=== PATIENT | female | born 1995 | race Two or more races ===

== ENCOUNTER 2024-10-29 08:37 | Emergency (ER) | payer MEDICAID, SELFPAY ==
[2024-10-29 08:41] VITALS: BP 125/71; PULSE 76; RESP 18; TEMP 36.8; O2SAT 100; BMI 40.4
[2024-10-29 08:45] VITALS: PULSE 70; O2SAT 98; BMI 37.8
--- NOTE | 2024-10-29 08:45 | PD.EDSYNC ---
ED Syncope RME/HPI General Chief Complaint: Syncope / Near Syncope Stated Complaint: SYNCOPE Time Seen by Provider: 10/29/24 08:44 Arrival date/time: 10/29/24 08:37 RME / HPI RME / HPI narrative: 28 year old female who is currently 5 weeks gestational age with history of diabetes, hyperlipidemia, preeclampsia presents to the ED BIBA for evaluation of syncopal episode today. 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 She states she has been having morning sickness associated with the . States she went to sit and put her head down and next thing she recalls is waking on the floor. Per medics, [place] staff witnessed patient lose consciousness for ~ 20 seconds. Prehospital BS 144, blood pressure 140/86, NSR at 70 bpm. No falls or injuries reported. While in the ED patient complains of nausea otherwise no other symptoms reported. Denies fever, chills, sweating. Denies chest pain, cough, shortness of breath. Denies diarrhea, constipation. Denies dysuria, urinary frequency and urgency. Related Data Previous Rx's ?Medication ?Instructions ?Recorded nitrofurantoin 100 mg PO BID #14 caps 10/29/24 monohydrate/macrocrystals 100 mg capsule (Macrobid) Allergies Allergy/AdvReac Type Severity Reaction Status Date / Time amoxicillin Allergy Swelling Verified 10/29/24 09:00 of Lip/Tongue/Throat azithromycin Allergy Swelling Verified 10/29/24 09:00 of Lip/Tongue/Throat Latex, Natural Rubber Allergy Hives Verified 10/29/24 09:00 Penicillins Allergy Swelling Verified 10/29/24 09:00 of Lip/Tongue/Throat Review of Systems Review of Systems Narrative Review of Systems: GEN: No fever, no chills, no weight loss EYES: No discharge, no visual changes, no pain HEENT: No ear pain, no congestion, no sore throat PULM: No shortness of breath, no cough, no congestion CV: +syncope. No chest pain, no palpitations GI: + nausea, no vomiting, no diarrhea, no pain, no constipation : No frequency, no urgency and no dysuria MUSC/SKEL No joint pain, no back pain SKIN: No rash NEURO: No weakness, no headache Past Medical History Past Medical History NEUROLOGIC: Positive Peripheral Neuropathy (PAIN STIMULATOR) CARDIAC: Positive Heart Murmur and Hypertension; Negative Congestive Heart Failure RESPIRATORY: Negative Chronic Obstructive Pulmonary Disease (COPD) GENITOURINARY: Negative Renal Disease REPRODUCTIVE: Positive Previous Pregnancies ENDOCRINE: Positive Diabetes Mellitus Type 2; Negative Diabetes Mellitus Type 1 Social History SMOKING STATUS: Never smoker ED Exam Narrative Physical exam: GENERAL APPEARANCE: alert and oriented x 4, well-developed, well-nourished, no acute distress HEENT: Normocephalic, atraumatic; pupils equal, round, reactive to light; EOMI; mucous membranes pink, moist; oropharynx clear NECK: Supple LUNGS: CTABL; no wheezes, no rales, no rhonchi HEART: Regular rate, regular rhythm; normal S1, S2; no murmurs ABDOMEN: non distended; normal BS; soft, very mild left lower quadrant tenderness, no rebound, no guarding; no masses, no organomegaly, no hernia BACK: no CVA tenderness EXTREMITIES: atraumatic; no edema NEUROLOGIC: awake; alert and oriented x4; cranial nerves II-XII grossly intact; no focal sensory or motor deficits PSYCHIATRIC: appropriate mood and affect SKIN: warm, dry, normal color; no rashes Course Quality Measures none Orders Category Date Time Status US OB <= 14 weeks fetus Stat Exams 10/29/24 08:50 Completed US OB transvaginal Stat Exams 10/29/24 08:50 Completed Beta HCG,Quantitative Stat Lab 10/29/24 09:45 Completed CBC Stat Lab 10/29/24 09:45 Completed CMP [Comprehensive Metabolic Panel] Stat Lab 10/29/24 09:45 Completed Magnesium Stat Lab 10/29/24 09:45 Completed UA [Urinalysis] Stat Lab 10/29/24 09:27 Completed Urine Culture Stat Lab 10/29/24 09:27 Received Vital Signs Vital signs: Vital Signs Temperature 98.3 F 10/29/24 08:41 Pulse Rate 76 10/29/24 08:41 Respiratory Rate 18 10/29/24 08:41 Blood Pressure 125/71 10/29/24 08:41 Pulse Oximetry (%) 100 10/29/24 08:41 Oxygen Delivery Method Nasal Cannula 10/29/24 08:41 Oxygen Flow Rate 2 10/29/24 08:41 Pulse ox is 100% on room air which is adequate. Syncope MDM Narrative MDM Narrative:: Vanessa Garcia am scribing for and in the presence of Dr. Gil. Patient data External records reviewed:: [facility] previous records (Per EMR review, no previous visits for review ) and EMS form Clinical information provided by:: patient and EMS Social determinants that could affect healthcare access:: none Patient has the following chronic illnesses:: currently 5 weeks gestational age with history of diabetes, hyperlipidemia, preeclampsia How is presenting disease/condition affected by chronic disease/condition?: exacerbated by Evaluation data The following diagnostics were reviewed and interpreted by me:: lab results and radiology exam(s) Lab and/or radiology exams considered but not ordered:: None Interpretation Summary: Ordering Physician: Ruth Ann Gil MD Date of Service: 10/29/24 Procedure(s): US OB <= 14 weeks fetus Accession Number(s): [id number] cc: Silas Byrd MD; NO PRIMARY/FAMILY,PHYSICIAN; Ruth Ann Gil MD~ Examination: Complete OB ultrasound, less than 14 weeks, transabdominal Date and time of exam: October 29, 2024 1006 hours INDICATIONS: Onset sharp left-sided pelvic pain today Technique: Obstetrical ultrasound images less than 14 weeks performed via transabdominal imaging Findings: Uterus 7.6 x 4.3 x 6.1 cm Endometrial sign 0.6 cm No uterine mass or intrauterine gestation Trace free fluid in the posterior cul-de-sac Right ovary 3.1 x 1.9 x 4.1 cm arterial flow, 23 x 14 x 20 mm cyst Left ovary 3.3 x 2.2 x 2.8 cm arterial flow IMPRESSION: No uterine mass or intrauterine gestation Right ovarian cyst 23 x 14 x 22 mm Suggest short-term follow-up transvaginal pelvic sonography as clinically warranted Dictated By: Silas Byrd MD Signed By: <Electronically signed by Silas Byrd MD in OV> 10/29/24 1115 Ordering Physician: Ruth Ann Gil MD Date of Service: 10/29/24 Procedure(s): US OB transvaginal Accession Number(s): [id number] cc: Silas Byrd MD; NO PRIMARY/FAMILY,PHYSICIAN; Ruth Ann Gil MD~ Examination: OB Transvaginal ultrasound of the pelvis, complete Technique: Transvaginal sonographic images pelvis performed using corea scale imaging Exam date and time: October 29, 2024 1027 hours INDICATIONS: Onset sharp left-sided pelvic pain beginning yesterday FINDINGS: Uterus 7.8 x 5.3 x 5.4 cm Endometrial stripe 14 mm No intrauterine gestation or uterine mass Ovaries obscured by bowel gas IMPRESSION: No uterine mass or intrauterine gestation. Dictated By: Silas Byrd MD Signed By: <Electronically signed by Silas Byrd MD in OV> 10/29/24 1114 Medications / Prescriptions Medications or Prescriptions considered but not ordered:: None Medication administrations:: None Consultations Consultation(s) initiated? (list below): No Diagnosis Syncope Differential Diagnosis: syncope due to orthostatic hypotension, vasovagal syncope and dehydration Most likely diagnosis given after review of the tests above:: at early stage Abdominal pain during Admission Indicated Admission indicated?: not indicated Explain why admission is indicated or not indicated:: Does not meet admission criteria. Admission Request Was there a request for admission?: No Disposition Plan Disposition Plan: Discharge Discharge Attestation Discharge Attestation: The patient and all family members were given an opportunity to ask questions and understood the discharge instructions. Discharge instructions specifically effects, indications for sooner follow up or return to the emergency department, and the expected course of current diagnosis. Patient condition: Stable Discharge Plan Plan Patient Disposition: HOME (Self Care) Prescriptions/Referrals Prescriptions/Med Rec: New nitrofurantoin monohyd/m-cryst [Macrobid] 100 mg capsule 100 mg PO BID Qty: 14 0RF Rx Instructions: must administer with a meal/food Referrals: No Primary/Family,Physician [Primary Care Provider] - In 1 week Problem List Clinical Impression: at early stage, Abdominal pain during , UTI (urinary tract infection) during , Cyst of right ovary Patient/Caregiver Discharge Instructions Education Materials: ED Abdominal Pain Unkn Cause Fem, ED CYSTITIS Female Adult Additional Instructions: Follow up with your OB doctor in 2 days to recheck hormone levels and further management. Continue vitamins with folic acid. Print Language: Faroese Stand Alone Forms: Gloria Award Info., Patient Portal Info Letter
--- NOTE | 2024-10-29 08:50 | XR_ITS ---
Examination: OB Transvaginal ultrasound of the pelvis, complete Technique: Transvaginal sonographic images pelvis performed using corea scale imaging Exam date and time: October 29, 2024 1027 hours INDICATIONS: Onset sharp left-sided pelvic pain beginning yesterday FINDINGS: Uterus 7.8 x 5.3 x 5.4 cm Endometrial stripe 14 mm No intrauterine gestation or uterine mass Ovaries obscured by bowel gas IMPRESSION: No uterine mass or intrauterine gestation.
--- NOTE | 2024-10-29 08:50 | XR_ITS ---
Examination: Complete OB ultrasound, less than 14 weeks, transabdominal Date and time of exam: October 29, 2024 1006 hours INDICATIONS: Onset sharp left-sided pelvic pain today Technique: Obstetrical ultrasound images less than 14 weeks performed via transabdominal imaging Findings: Uterus 7.6 x 4.3 x 6.1 cm Endometrial sign 0.6 cm No uterine mass or intrauterine gestation Trace free fluid in the posterior cul-de-sac Right ovary 3.1 x 1.9 x 4.1 cm arterial flow, 23 x 14 x 20 mm cyst Left ovary 3.3 x 2.2 x 2.8 cm arterial flow IMPRESSION: No uterine mass or intrauterine gestation Right ovarian cyst 23 x 14 x 22 mm Suggest short-term follow-up transvaginal pelvic sonography as clinically warranted
[2024-10-29 09:33] LABS: Collection Type, Urine Clean Catch
[2024-10-29 09:57] LABS: Basophils % (Auto) 0 % (0-2.5); Eosinophils # (Auto) 0.1 Thou/mm3 (0.0-0.5); Eosinophils % (Auto) 1 % (0-10); Hematocrit 34.5 % (36.0-46.0); Hemoglobin 11.7 g/dL (12.0-16.0); Immature Granulocytes % (Auto) 1 % (0-0); Immature Granulocytes Auto 0.03 Thou/mm3 (0.00-0.00); Lymphocytes # (Auto) 0.7 Thou/mm3 (1.0-4.8); Lymphocytes % (Auto) 11 % (10-50); Mean Corpuscular HGB Conc 33.9 g/dl (31.0-37.0); Mean Corpuscular Hemoglobin 29.5 pg (25.0-35.0); Mean Corpuscular Volume 87 fL (80-100); Monocytes # (Auto) 0.6 Thou/mm3 (0.0-0.8); Monocytes % (Auto) 9 % (0-12); Neutrophils # (Auto) 5.1 Thou/mm3 (1.8-7.7); Neutrophils % (Auto) 78 % (37-80); Nucleated Red Blood Cell % 0 /100 WBC (0); Platelet Count 254 Thou/mm3 (140-440); RDW Standard Deviation 45.2 fL (36.4-46.3); Red Blood Count 3.97 Miln/mm3 (4.00-5.20); White Blood Count 6.6 Thou/mm3 (3.6-11.0)
[2024-10-29 10:00] VITALS: BP 106/69; PULSE 68; RESP 15; TEMP 36.5; O2SAT 100
[2024-10-29 10:02] LABS: Bacteria,Urine Rare; Bilirubin,Urine Negative (Negative); Blood,Urine 1+ (Negative); Clarity,Urine Turbid (Clear/Hazy); Color,Urine Yellow (Lt Yel-Yel); Glucose, Urine Negative (Negative); Ketones,Urine 1+ (Negative); Leukocyte Esterase,Urine Positive (Negative); Nitrite,Urine Negative (Negative); Protein,Urine 1+ (Neg - Trace); RBC,Urine 7 /hpf (0-3); Specific Gravity,Urine 1.021 (1.001-1.035); Squamous Epithelial Cell,Urine 2 /hpf (0-5); WBC,Urine 6 /hpf (0-5)
[2024-10-29 10:12] LABS: Alanine Aminotransferase 39 U/L (10-49); Albumin, Serum 4.7 gm/dL (3.5-5.0); Albumin/Globulin Ratio 1.6 (1.2-2.2); Alkaline Phosphatase 82 U/L (46-116); Anion Gap 8 (7-16); Aspartate Amino Transferase 35 U/L (0-34); BUN/Creatinine Ratio 8 Ratio (12-20); Beta HCG,Quantitative 872 mIU/mL (<5.0); Bilirubin,Total 0.5 mg/dL (0.3-1.2); Blood Urea Nitrogen 5 mg/dL (9-23); Calcium 9.2 mg/dL (8.3-10.6); Calcium (Corrected) 9.2 mg/dL (8.5-10.1); Carbon Dioxide 26.1 mMol/L (20.0-31.0); Chloride 104 mMol/L (98-107); Creatinine (Component) 0.6 mg/dL (0.6-1.3); Glucose 128 mg/dL (74-106); Magnesium 2.3 mg/dL (1.6-2.6); Osmolality,Calculated 274 (275-295); Potassium 3.6 mMol/L (3.4-5.1); Sodium 138 mMol/L (136-145); Total Protein 7.7 gm/dL (5.7-8.2); eGFR > 60 See Note
--- NOTE | 2024-10-29 10:21 | PC.NURSE ---
Patient presents to ED via ambulance for near syncope. Per patient staff at [facility] witnessed and stated it happened for about 20sec. Patient denies loc, headache only c/o weakness. Patient is alert and oriented. Patient updated with plan of care.
[2024-10-29 12:22] VITALS: BP 117/65; PULSE 65; RESP 17; TEMP 36.8; O2SAT 100
== END 2024-10-29 12:45 | disposition home or self-care (01) ==
PROVIDERS: Emergency Provider Emergency Medicine
DX: O34.81 Maternal care for other abnormalities of pelvic organs, first trimester (principal); N83.201 Unspecified ovarian cyst, right side; Z3A.01 Less than 8 weeks gestation of pregnancy
CPT/HCPCS: 36415; 76801; 76817; 80053; 81001; 83735; 84702; 85025; 87086; 99284